=== PATIENT | female | born 1950 | race Caucasian/White ===

== ENCOUNTER 2017-03-02 09:45 | Outpatient (CLI) ==
--- NOTE | 2017-03-02 10:14 | DI ---
EXAM: PA and lateral views of the chest HISTORY: Cough. COMPARISON: None FINDINGS: The cardiomediastinal silhouette is normal. The there is a calcified granuloma in the lef t lower lobe. There is no pneumothorax or pleural effusion. There is no consolidation, nodule or mas s. Lower lobes demonstrate linear ground-glass opacities. The osseous structures demonstrate multil evel degenerative disease of the spine. There are surgical clips in right upper quadrant. IMPRESSION: 1. Linear opacities in the bilateral lung bases may represent atelectasis, bronchiectasis versus sma ll airways inflammation. 2. Left-sided calcified granuloma and changes of prior cholecystectomy.
[2017-03-03 09:45] VITALS: BMI 31.8
== END 2017-03-02 09:46 | disposition home or self-care (01) ==
LOC: RAD 09:45
PROVIDERS: ATTEND Family Medicine
DX: R05 Cough (principal); J32.9 Chronic sinusitis, unspecified; J47.9 Bronchiectasis, uncomplicated

== ENCOUNTER 2017-03-03 09:38 | Emergency (ER) ==
[2017-03-03 09:45] VITALS: BMI 31.8
[2017-03-03] MEDS ORDERED: SODIUM CHLORIDE 1,000 ML IV STA ×2 (09:50→12:14)
[2017-03-03] MEDS ORDERED: DUONEB NEB STA ×2 (09:53→13:30)
[2017-03-03 10:12] LABS: ABG BASE EXCESS -4 (-2.0-2.0); ABG HCO3 19.6 (22.0-26.0); ABG PCO2 26.9 mmHg (35-45); ABG PH 7.471 (7.35-7.45); ABG TCO2 20 (22.0-28.0)
[2017-03-03 10:28] LABS: BASOPHILS % (AUTO) 0.2 % (0.0-3.0); EOSINOPHILS % (AUTO) 0.2 % (0.0-7.0); HEMATOCRIT 36.2 % (37.0-47.0); HEMOGLOBIN 12.9 g/dl (12.0-16.0); IMMATURE GRANULOCYTE % (AUTO) 2.4 % (0.0-5.0); LYMPHOCYTES # (AUTO) 0.1 K/uL (0.60-3.4); MEAN CORPUSCULAR HEMOGLOBIN 28.5 pg (27.0-31.0); MEAN CORPUSCULAR HGB CONC 35.6 (31.8-35.4); MEAN CORPUSCULAR VOLUME 79.9 fl (81.0-99.0); MONOCYTES # (AUTO) 0.1 K/uL (0.4-2.0); MONOCYTES % (AUTO) 0.9 (0-10); NEUTROPHILS # (AUTO) 12.5 K/ul (2.0-6.9); NEUTROPHILS % (AUTO) 95.3; PLATELET COUNT 175 10^3/uL (140-440); RED BLOOD COUNT 4.53 10^6/ul (4.20-5.40)
[2017-03-03 10:45] LABS: ALBUMIN 3.1 g/dL (3.4-5.0); ALBUMIN/GLOBULIN RATIO 0.94; ANION GAP 15.7; BILIRUBIN,TOTAL 0.31 mg/dL (0.00-1.20); CALCIUM 8.9 mg/dL (8.2-10.2); POTASSIUM 3.7 mmol/L (3.5-5.10); TOTAL PROTEIN 6.4 g/dL (5.8-8.1)
[2017-03-03 10:59] LABS: TROPONIN I 0.088 ng/ml (0.0000-0.4000)
[2017-03-03 11:06] LABS: FLU INTERNAL QC INTERNAL QC VALID; RAPID FLU A NEGATIVE (NEGATIVE); RAPID FLU B NEGATIVE (NEGATIVE)
--- NOTE | 2017-03-03 11:19 | CT ---
EXAM: CT chest without contrast HISTORY: Shortness of breath COMPARISON: Chest x-ray yesterday TECHNIQUE: Serial axial images of the chest were obtained from the lung apices to the upper abdomen without contrast. These were viewed in multiple planes. FINDINGS: The thyroid is normal. The visualized vessels demonstrate mild atherosclerotic disease wi thout aneurysm or stenosis. The heart is normal in size without pericardial effusion. There are no pathologically enlarged mediastinal or hilar lymph nodes. Numerous nonpathologically enlarged mediast inal and hilar lymph nodes are present. There are calcified mediastinal and left hilar lymph nodes p resent. There is no pneumothorax or pleural effusion. There is airway thickening and consolidation in the mo st dependent aspects of the lower lobes and within the right middle lobe. Air bronchograms are prese nt. Calcified granulomas noted in the left lung. No additional areas of concern are present. The soft tissues in the upper abdomen demonstrate prior cholecystectomy. Round low attenuation lesio n in the left kidney with indeterminate Hounsfield units is present. The osseous structures are unre markable. IMPRESSION: 1. Bilateral lower lobe consolidations with consolidation and airway thickening in the right middle lobe most consistent with pneumonia. 2. Low attenuation lesion in the kidney is indeterminate and may represent a proteinaceous cyst, fur ther evaluation may be obtained with ultrasound as clinically indicated. 3. Sequela of old granulomatous disease.
[2017-03-03] MEDS ORDERED: ROCEPHIN IV STA (11:59)
[2017-03-03 12:04] LABS: CREATINE KINASE MB 2.2 ng/ml (0.0-3.6)
[2017-03-03] MEDS ORDERED: SODIUM CHLORIDE 100 ML IV ONE (12:16)
--- NOTE | 2017-03-03 12:18 | ED.PDOC ---
General ED Provider: Dr. CARMELA BARBOUR Chief Complaint: Shortness of Air Stated Complaint: SHORTNESS OF BREATH Time Seen by Physician: 09:45 (SEEN WITH NURSING STAFF AT ALL TIMES ) Mode of Arrival: Wheelchair Information Source: Patient, Family Exam Limitations: No limitations Primary Care Provider: MERLYN BEASLEY Referred to ED by: Other (ARRIBED WITH SYSTOLIC BLOOD PRESSURE IN THE HIGH 80'S) Nursing and Triage Documentation Reviewed and Agree: Yes (WAS STARTED ON LEVAQUIN AND PREDNISONE 1 DAY AGO) Respiratory Complaint Exam - Respiratory Complaint/Exam Onset/Duration: 1 DAY Symptoms Are: Still present Timing: Constant Initial Severity: Moderate Current Severity: Moderate Location: Chest Character: Reports: Non-productive cough Aggravating: Reports: None Alleviating: Reports: None Associated Signs and Symptoms: Reports: Dyspnea, Wheezing, Nasal congestion, Sore throat History of Healthcare-Acquired Pneumonia: No Related Surgical History: Reports: None Pulmonary Embolism Risk Factors: None Review of Systems - Review Of Systems Constitutional: Reports: Chills, Malaise, Weakness, Loss of appetite Eyes: Reports: No symptoms Ears, Nose, Mouth, Throat: Reports: No symptoms Respiratory: Reports: Cough, Short of air Cardiac: Reports: No symptoms GI: Reports: No symptoms : Reports: No symptoms Musculoskeletal: Reports: No symptoms Skin: Reports: No symptoms Neurological: Reports: No symptoms Endocrine: Reports: No symptoms Hematologic/Lymphatic: Reports: No symptoms All Other Systems: Reviewed and Negative Past Medical History - Past Medical History Previously Healthy: Yes Endocrine: Reports: None Cardiovascular: Reports: Hypertension Respiratory: Reports: COPD Hematological: Reports: None Gastrointestinal: Reports: None Genitourinary: Reports: None Neuro/Psych: Reports: None Musculoskeletal: Reports: None Cancer: Reports: None Last Menstrual Period: none - Surgical History General Surgical History: Reports: None - Family History Family History: Reports: None - Social History Smoking Status: Never smoker Hx Substance Use: No Alcohol Screening: None Physical Exam - Physical Exam Appearance: Ill-appearing Ill-appearing: Moderate Pain Distress: Moderate Eyes: PEREZ, EOMI, Conjunctiva clear ENT: Ears normal, Nose normal, Oropharynx normal Respiratory: Breath sounds diminished, Rhonchi Cardiovascular: RRR, Pulses normal, No rub, No murmur GI/: Soft, Nontender, No masses, Bowel sounds normal, No Organomegaly Musculoskeletal: Normal strength, ROM intact, No edema, No calf tenderness Skin: Warm, Dry, Normal color Neurological: Sensation intact, Motor intact, Reflexes intact, Cranial nerves intact, Alert, Oriented Psychiatric: Affect appropriate, Mood appropriate Interpretation - Radiology Interpretation Radiology Interpretation By: Radiologist (PNEUMONIA) - Engineer Internship Rate: Normal Rhythm: Sinus - EKG Interpretation Rhythm: Other (NORMAL SINUS WITH BIFASICULAR BLOCK) Re-Evaluation - Re-Evaluation Time of Re-Evaluation: 10:15 Status: Unchanged Vital Signs Stable: Yes Pain Level: 0 Appearance: NAD Lungs: Clear Skin: Warm and Dry Neuro: Alert and Oriented X3 CV: RRR Additional Comments: NO ACUTE EVENT NO CHEST PAIN - Re-Evaluation Time of Re-Evaluation: 12:20 Status: Unchanged Vital Signs Stable: Yes Pain Level: 0 Appearance: NAD Skin: Warm and Dry Neuro: Alert and Oriented X3 CV: RRR (HIGH D DIMERS AND PROCALCITONIN POOR GFR LEVOPHED AND FURTHER NORMAL SALINE STARTED) Physician Notification - Case Discussed Physician Notified: PMD Time of Notification: 12:20 (WILL SEE PT IN THE ED) Critical Care Note - Critical Care Note Total Time (mins): 2 Course - Course Hematology/Chemistry: 03/03/17 10:15 03/03/17 10:15 Orders, Labs, Meds: Lab Review 03/03/17 03/03/17 03/03/17 09:58 10:05 10:15 WBC 13.10 H RBC 4.53 Hgb 12.9 Hct 36.2 L MCV 79.9 L MCH 28.5 MCHC 35.6 H RDW Coeff of [place] 13.5 Plt Count 175 Immature Gran % (Auto) 2.4 Neut % (Auto) 95.3 Lymph % (Auto) 1.0 L G[place]rie % (Auto) 0.9 Eos % (Auto) 0.2 Baso % (Auto) 0.2 Immature Gran # (Auto) 0.3 Neut # 12.5 H Lymph # 0.1 L Guthrie # 0.1 L Eos # 0.0 Baso # 0.0 D-Dimer (Manual) Puncture Site R rad O2 Saturation 95.0 ABG pH 7.471 H ABG pCO2 26.9 L ABG pO2 67.0 L ABG HCO3 19.6 L ABG Total CO2 20 L ABG Base Excess -4 L Frantz Test + FiO2 % 21.0 Sodium Potassium Chloride Carbon Dioxide Anion Gap BUN Creatinine Estimated GFR (MDRD) BUN/Creatinine Ratio Glucose Lactic Acid Calcium Total Bilirubin AST ALT Alkaline Phosphatase Total Creatine Kinase CK-MB (CK-2) CK-MB (CK-2) % Troponin I Total Protein Albumin Globulin Albumin/Globulin Ratio Procalcitonin Influenza A (Rapid) Negative Influenza B (Rapid) Negative 03/03/17 03/03/17 03/03/17 10:15 10:15 10:15 WBC RBC Hgb Hct MCV MCH MCHC RDW Coeff of [place] Plt Count Immature Gran % (Auto) Neut % (Auto) Lymph % (Auto) Guthrie % (Auto) Eos % (Auto) Baso % (Auto) Immature Gran # (Auto) Neut # Lymph # Guthrie # Eos # Baso # D-Dimer (Manual) 4364.43 Puncture Site O2 Saturation ABG pH ABG pCO2 ABG pO2 ABG HCO3 ABG Total CO2 ABG Base Excess Frantz Test FiO2 % Sodium 135 L Potassium 3.7 Chloride 104 Carbon Dioxide 19 L Anion Gap 15.7 BUN 20 H Creatinine 2.00 H Estimated GFR (MDRD) 25.00 BUN/Creatinine Ratio 10.00 Glucose 139 H Lactic Acid Calcium 8.9 Total Bilirubin 0.31 AST 29 ALT 27 Alkaline Phosphatase 79 Total Creatine Kinase 219 CK-MB (CK-2) 2.2 CK-MB (CK-2) % 1.30409 Troponin I 0.0880 Total Protein 6.4 Albumin 3.1 L Globulin 3.3 Albumin/Globulin Ratio 0.94 Procalcitonin Influenza A (Rapid) Influenza B (Rapid) 03/03/17 03/03/17 10:15 10:15 WBC RBC Hgb Hct MCV MCH MCHC RDW Coeff of [place] Plt Count Immature Gran % (Auto) Neut % (Auto) Lymph % (Auto) Guthrie % (Auto) Eos % (Auto) Baso % (Auto) Immature Gran # (Auto) Neut # Lymph # Guthrie # Eos # Baso # D-Dimer (Manual) Puncture Site O2 Saturation ABG pH ABG pCO2 ABG pO2 ABG HCO3 ABG Total CO2 ABG Base Excess Frantz Test FiO2 % Sodium Potassium Chloride Carbon Dioxide Anion Gap BUN Creatinine Estimated GFR (MDRD) BUN/Creatinine Ratio Glucose Lactic Acid 22.2 H Calcium Total Bilirubin AST ALT Alkaline Phosphatase Total Creatine Kinase CK-MB (CK-2) CK-MB (CK-2) % Troponin I Total Protein Albumin Globulin Albumin/Globulin Ratio Procalcitonin 12.97 Influenza A (Rapid) Influenza B (Rapid) Orders Category Date Time Status ABG DRAW REQUEST Stat CARDIO 03/03/17 09:49 Completed EKG-(ED ONLY) Stat CARDIO 03/03/17 09:49 Completed NEBULIZER TREATMENT Stat CARDIO 03/03/17 09:53 Completed NPO REMINDER: IMAGING ONCE CARE 03/03/17 11:59 Active ED IV/MEDIPORT/POWERPORT .ONCE EMERGENCY 03/03/17 09:49 Active ABG Stat LAB 03/03/17 10:05 Completed BLOOD CULTURE Stat LAB 03/03/17 10:40 Received CBC W/ AUTO DIFF Stat LAB 03/03/17 10:15 Completed COMPREHENSIVE METABOLIC PANEL Stat LAB 03/03/17 10:15 Completed CREATINE KINASE Stat LAB 03/03/17 10:15 Completed D-DIMER Stat LAB 03/03/17 10:15 Completed LACTIC ACID Stat LAB 03/03/17 10:15 Completed PROCALCITONIN Stat LAB 03/03/17 10:15 Completed RAPID FLU A/B Stat LAB 03/03/17 09:58 Completed TROPONIN I Stat LAB 03/03/17 10:15 Completed URINALYSIS C & S IF INDICATED Stat LAB 03/03/17 09:49 Uncollected 0.9 % Sodium Chloride [Saline Flush] MEDS 03/03/17 09:48 Active 1 syr IVF PRN PRN Ceftriaxone Sodium [Rocephin] MEDS 03/03/17 11:59 Discontinued 2 gm IV ONCE STA Ipratropium/Albuterol Neb [Duoneb] MEDS 03/03/17 09:53 Discontinued 1 vial NEB ONCE STA NOREPINEPHRINE BITARTRATE INJ 4 MG in DEXTROSE 5 %- MEDS 03/03/17 12:30 Ordered WATER(250ml) Dextrose 5 %-Water [Dextrose 5%-Water IV Soln] 246 ml Norepinephrine Bitartrate Inj [Levophed] 4 mg IV 8 mcg/min SODIUM CHLORIDE 0.9% @ 1,000 MLS/HR(1,000ml) MEDS 03/03/17 12:14 Ordered Sodium Chloride 0.9% [Sodium Chloride] 1,000 ml IV BOLUS Sodium Chloride 0.9% [Sodium Chloride] 1,000 ml MEDS 03/03/17 09:[address] CHEST PE PROTOCOL Stat RADS 03/03/17 11:[address] CHEST W/O CONTRAST Stat RADS 03/03/17 09:53 Completed Medications Generic Name Dose Route Start Last Admin Trade Name Freq PRN Reason Stop Dose Admin Sodium Chloride 1,000 mls @ 1,000 mls/hr 03/03/17 12:14 Sodium Chloride IV 03/03/17 13:13 BOLUS STA Norepinephrine Bitartrate 4 mg 250 mls @ 30 mls/hr 03/03/17 12:30 / Dextrose IV .Q8H20M AKASH Protocol 8 MCG/MIN Sodium Chloride 1 syr 03/03/17 09:48 Saline Flush IVF PRN PRN To flush IV Discontinued Medications Generic Name Dose Route Start Last Admin Trade Name Freq PRN Reason Stop Dose Admin Albuterol/Ipratropium 1 vial 03/03/17 09:53 03/03/17 10:05 Duoneb NEB 03/03/17 09:54 1 vial ONCE STA Administration Ceftriaxone Sodium 2 gm 03/03/17 11:59 Rocephin IV 03/03/17 12:00 ONCE STA Sodium Chloride 1,000 mls @ 1,000 mls/hr 03/03/17 09:50 03/03/17 10:22 Sodium Chloride IV 03/03/17 10:49 1,000 mls/hr BOLUS STA Administration Vital Signs: Temp Pulse Resp BP Pulse Ox 03/03/17 11:39 94/54 L 03/03/17 09:38 100.3 F H 89 24 76/50 L 92 L Departure - Departure Time of Disposition: 13:00 Disposition: TSF SHORT-TRM HOSP Discharge Problem: CAP (community acquired pneumonia) Qualifiers: Lung location: unspecified part of lung Renal failure Qualifiers: Renal failure chronicity: unspecified chronicity Qualified Code(s): N19 - Unspecified kidney failure Sepsis Qualifiers: Sepsis type: sepsis due to unspecified organism Qualified Code(s): A41.9 - Sepsis, unspecified organism Instructions: Pneumonitis (ED) Condition: Good Pt referred to PMD for follow-up: Yes Allergies/Adverse Reactions: Allergies No Known Allergies Allergy (Verified 03/03/17 09:46) Home Medications: Ambulatory Orders Albuterol Sulfate [Proair Hfa] 2 puff IH Q4H PRN 03/03/17 Fluticasone Propionate [Flonase] 2 spray NS DAILY 03/03/17 Furosemide [Lasix Tab] 20 mg PO QDAC 03/03/17 Gabapentin [Neurontin] 100 mg PO TID 03/03/17 Meloxicam [Mobic] 15 mg PO DAILY 03/03/17 Theophylline Anhydrous [Theophylline] 200 mg PO BID 03/03/17 Valsartan [Diovan] 80 mg PO DAILY 03/03/17 Valsartan [Diovan] 80 mg PO DAILY 03/03/17 Disposition Discussed With: Patient, Family
[2017-03-03] MEDS ORDERED: VANCOMYCIN 1 GM in SODIUM CHLORIDE 250 ML IV STA (12:26)
[2017-03-03] MEDS ORDERED: LEVOPHED 4 MG in DEXTROSE 5%-WATER IV SOLN 246 ML IV SCH (12:30)
[2017-03-03 12:49] VITALS: BP 89/57; TEMP 101.2
[2017-03-03] MEDS ORDERED: LOVENOX SUBCUT STA (13:29)
== END 2017-03-03 13:57 | disposition short-term general hospital (02) ==
LOC: ED 09:38
DX: A41.9 Sepsis, unspecified organism (principal); J18.9 Pneumonia, unspecified organism; N19 Unspecified kidney failure; R06.02 Shortness of breath; J44.9 Chronic obstructive pulmonary disease, unspecified; I10 Essential (primary) hypertension; E86.0 Dehydration; Z79.899 Other long term (current) drug therapy
CPT/HCPCS: 36415; 80053; 82550; 82553; 82803; 83605; 84145; 84484; 85025; 85379; 87040; 87804; 93005; 93010; 94640; 96361; 96365; 96367; 96372; 99285